=== PATIENT | female | born 1985 | race Caucasian/White ===

== ENCOUNTER → 2017-04-11 | Day surgery (SDC) | payer OTHER ==
[2017-04-11 08:18] LABS: CREATININE 0.6 mg/dL (0.5-1.0); POTASSIUM 4.3 mmol/L (3.5-5.1)
== END | disposition home or self-care (01) ==
LOC: FAS 04-06 08:00
PROVIDERS: Anesthesiology
DX: D06.0 Carcinoma in situ of endocervix (principal); N92.1 Excessive and frequent menstruation with irregular cycle; I10 Essential (primary) hypertension; Z79.899 Other long term (current) drug therapy; E03.9 Hypothyroidism, unspecified; Z88.1 Allergy status to other antibiotic agents; E66.3 Overweight; Z68.29 Body mass index [BMI] 29.0-29.9, adult
CPT/HCPCS: 36415; 80048; 84703; 88302; 88307; J2405; J2704; J3010